=== PATIENT | female | born 1975 | race African-American/Black ===

== ENCOUNTER 2020-02-11 18:58 | Emergency (ER) | payer OTHER ==
[~2020-02-11] VITALS: Ht 170.2 cm; Wt 83.0 kg
[2020-02-11] MEDS ORDERED: ACETAMINOPHEN ES 500 MG TABLET ONE (19:18)
--- NOTE | 2020-02-11 19:22 | NUR ---
PATIENT CAME TO ER C/O RIGHT ANKLE PAIN. PATIENT STATES THAT SHE WAS MAKING HER BED WHEN SHE TWISTED HER ANKLE, UNSURE IF EVERSION OR INVERSION. ANKLE IS SWOLLEN. PATIENT STATES THAT SHE WAS ABLE TO BEAR SOME WEIGHT ON HER RIGHT FOOT. AAOX4. NO SOB. BREATHING EVENLY AND UNLABORED ON ROOM AIR.
[2020-02-11] MEDS ORDERED: ACETAMINOPHEN 325 MG TABLET PO ONE (19:30)
[2020-02-11 20:04] VITALS: BP 124/7
--- NOTE | 2020-02-11 20:04 | NUR ---
Patient discharged to home in stable condition. Written and verbal after care instructions given. Patient verbalizes understanding of instruction. Pt given crutches, taught how to ambulate using crutches. Pt ambulated through E.D. using crutches. VSS.
== END 2020-02-11 20:05 | disposition home or self-care (01) ==
LOC: ER 19:03
DX: S93.491A Sprain of other ligament of right ankle, initial encounter (principal); X50.1XXA Overexertion from prolonged static or awkward postures, initial encounter; Y93.01 Activity, walking, marching and hiking; Y92.89 Other specified places as the place of occurrence of the external cause; Y99.8 Other external cause status
CPT/HCPCS: 73610-TC

== ENCOUNTER 2022-11-17 09:23 | Emergency (ER) | payer OTHER ==
[~2022-11-17] VITALS: Ht 167.6 cm; Wt 88.5 kg
[2022-11-17 09:31] VITALS: BP 108/65
--- NOTE | 2022-11-17 09:33 | NUR ---
PT WALKED INTO ER C/O ITCHY RASH ON CHEST AND BACK SINCE YESTERDAY. PT DENIES SOB AND OR CHEST PAIN. VSS. BREATHING EVEN AND UNLABORED. AMBULATED TO BED WITH STEADY GAIT, AAOX4. AWAITING MD ORDERS.
--- NOTE | 2022-11-17 09:34 | NUR ---
PA AT BEDSIDE FOR EVAL.
[2022-11-17] MEDS ORDERED: CETI-90 PO (09:48)
--- NOTE | 2022-11-17 10:13 | NUR ---
Patient discharged to home in stable condition. Written and verbal after care instructions given. Patient verbalizes understanding of instruction.
[2022-11-18] MEDS ORDERED: HYDR453.3 TP (14:01)
[2022-11-18] MEDS ORDERED: MUPI22OI2 TP (14:01)
[2022-11-18] MEDS ORDERED: ALBU18HF2 INH (14:11)
== END 2022-11-17 10:14 | disposition home or self-care (01) ==
LOC: ER 09:23
DX: J06.9 Acute upper respiratory infection, unspecified (principal); L25.9 Unspecified contact dermatitis, unspecified cause; Z79.899 Other long term (current) drug therapy

== ENCOUNTER 2022-11-18 11:53 | Emergency (ER) | payer OTHER ==
[~2022-11-18] VITALS: Ht 167.6 cm; Wt 88.5 kg
[~2022-11-18 11:53] MED LIST: CETI-90 PO
--- NOTE | 2022-11-18 12:10 | NUR ---
BIBS C/O SOB SINCE LAST NIGHT, WORSENING RASH TO CHEST AREA. AMBULATORY, PLACED IN BED, BRERATHING UNLABORED SATURATING AT 97%RA
--- NOTE | 2022-11-18 12:35 | NUR ---
AT BEDSIDE FOR EVAL.
[2022-11-18] MEDS: ALBUTEROL FS 2.5 MG/3 ML VIAL.NEB NEB ONE (12:57)
[2022-11-18] MEDS ORDERED: ALBUTEROL FS 2.5 MG/3 ML VIAL.NEB ONE (13:04)
--- NOTE | 2022-11-18 13:14 | NUR ---
SWAB FOR COVID19 SENT TO LAB
--- NOTE | 2022-11-18 13:16 | NUR ---
X-RAY TECH AT BEDSIDE
[2022-11-18] MEDS ORDERED: HYDR453.3 TP (14:01)
[2022-11-18] MEDS ORDERED: MUPI22OI2 TP (14:01)
[2022-11-18] MEDS ORDERED: ALBU18HF2 INH (14:11)
--- NOTE | 2022-11-18 14:20 | NUR ---
Patient discharged to home in stable condition. Written and verbal after care instructions given. Patient verbalizes understanding of instruction.
[2022-11-18 14:25] VITALS: BP 120/70
== END 2022-11-18 14:20 | disposition home or self-care (01) ==
LOC: ER 11:59
DX: J06.9 Acute upper respiratory infection, unspecified (principal); R05.9 Cough, unspecified; R09.81 Nasal congestion; L25.9 Unspecified contact dermatitis, unspecified cause; L73.9 Follicular disorder, unspecified; J45.909 Unspecified asthma, uncomplicated; Z20.822 Contact with and (suspected) exposure to COVID-19; Z79.899 Other long term (current) drug therapy
CPT/HCPCS: 99285; 71045; 87426; 94644; C9803

== ENCOUNTER 2023-09-23 15:49 | Emergency (ER) | payer OTHER ==
[~2023-09-23] VITALS: Ht 167.6 cm; Wt 93.0 kg
[~2023-09-23 15:49] MED LIST changes: +ALBU18HF2 INH; +HYDR453.3 TP; +MUPI22OI2 TP
[2023-09-23 16:25] LABS: BASOPHILS % (AUTO) 0.5 % (0.0-2.0); EOSINOPHILS # (AUTO) 0.5 K/uL (0.0-0.7); HEMATOCRIT 35 % (33-45); HEMOGLOBIN 11.8 g/dL (11.5-14.8); LYMPHOCYTES % (AUTO) 30.3 % (20.0-44.0); MEAN CORPUSCULAR HEMOGLOBIN 33 PG (26.0-33.0); MEAN CORPUSCULAR HGB CONC 34 g/dl (31.0-36.0); MEAN CORPUSCULAR VOLUME 97 fL (82-100); MONOCYTES # (AUTO) 0.9 K/uL (0.1-1.30); MONOCYTES % (AUTO) 8.6 % (2.0-12.0); NEUTROPHILS # (AUTO) 5.5 K/uL (1.8-8.9); NEUTROPHILS % (AUTO) 55.6 % (43.0-81.0); PLATELET COUNT (AUTO) 276 K/uL (150-450); RED BLOOD CELL COUNT(AUTO) 3.56 MIL/uL (4.0-5.2); WHITE BLOOD COUNT (AUTO) 9.9 K/uL (4.3-11.0)
[2023-09-23] MEDS ORDERED: MORPHINE SULFATE INJ 2 MG/ML DISP.SYRIN IV ONE (16:30)
[2023-09-23] MEDS ORDERED: IV NS 0.9% 1,000 ML BAG IV ONE (16:30)
[2023-09-23] MEDS ORDERED: ONDANSETRON HCL/PF 4 MG/2 ML VIAL IVP ONE (16:30)
[2023-09-23] MEDS ORDERED: ONDANSETRON HCL/PF 4 MG/2 ML VIAL ONE (16:38)
[2023-09-23] MEDS ORDERED: KETOROLAC TROMETHAMINE INJ 30 MG/ML VIAL ONE (16:39)
[2023-09-23] MEDS ORDERED: MORPHINE SULFATE INJ 4 MG/ML DISP.SYRIN ONE (16:39)
[2023-09-23 16:50] LABS: APPEARANCE,URINE CLEAR (CLEAR); BILIRUBIN,URINE NEGATIVE (NEGATIVE); BLOOD, URINE NEGATIVE Ery/uL (NEGATIVE); COLOR,URINE YELLOW (YELLOW); KETONES,URINE NEGATIVE (NEGATIVE); LEUKOCYTE ESTERASE ,URINE NEGATIVE (NEGATIVE); NITRITE, URINE NEGATIVE (NEGATIVE); PROTEIN,URINE NEGATIVE (NEGATIVE); UGLUCOSE NEGATIVE (NEGATIVE); UROBILINOGEN,URINE 0.2 EU/dL (0.2)
[2023-09-23 16:52] LABS: PREGNANCY TEST URINE QUAL NEGATIVE (NEGATIVE)
[2023-09-23] MEDS ORDERED: KETOROLAC TROMETHAMINE INJ 30 MG/ML VIAL IV ONE (17:00)
[2023-09-23 17:02] LABS: ALBUMIN 3.7 g/dL (3.4-5.0); BILIRUBIN,DIRECT 0.2 mg/dL (0.0-0.2); BILIRUBIN,TOTAL 0.6 mg/dL (0.2-1.0); CALCIUM, SERUM 9.5 mg/dL (8.5-10.1); CREATININE 0.9 mg/dL (0.6-1.3); POTASSIUM 3.4 mmol/L (3.5-5.1); TOTAL PROTEIN, SERUM 7.2 g/dL (6.4-8.2)
[2023-09-23] MEDS ORDERED: CETI-90 PO (18:58)
[2023-09-23] MEDS ORDERED: NAPR-1164 PO (18:58)
[2023-09-23 19:50] VITALS: BP 112/70; TEMP 98.4; O2SAT 97
== END 2023-09-23 19:52 | disposition home or self-care (01) ==
LOC: ER 15:57
DX: D25.2 Subserosal leiomyoma of uterus (principal); L30.9 Dermatitis, unspecified; R10.2 Pelvic and perineal pain; R11.2 Nausea with vomiting, unspecified; Z60.2 Problems related to living alone
CPT/HCPCS: 99285; 74176; 96374; 76856; 96375; 96361; 85025; 80048; 83690; 80076; 84703; 81003; 36415; 84702; J2270; J1885; J2405; J7030

== ENCOUNTER 2024-01-01 12:23 | Emergency (ER) | payer OTHER ==
[~2024-01-01] VITALS: Ht 167.6 cm; Wt 87.5 kg
[~2024-01-01 12:23] MED LIST changes: +NAPR-1164 PO
[2024-01-01 12:43] VITALS: BP 116/75; TEMP 98.6
[2024-01-01] MEDS ORDERED: HYDR28.32 TP (13:55)
[2024-01-01 14:01] VITALS: O2SAT 99
== END 2024-01-01 14:03 | disposition home or self-care (01) ==
LOC: ER 12:30
DX: M79.672 Pain in left foot (principal); Z60.2 Problems related to living alone; Z79.899 Other long term (current) drug therapy
CPT/HCPCS: 73630-TC

== ENCOUNTER 2025-05-24 15:45 | Emergency (ER) | payer MEDICARE, OTHER ==
[~2025-05-24] VITALS: Ht 167.6 cm; Wt 92.5 kg
[~2025-05-24 15:45] MED LIST changes: +HYDR28.32 TP
[2025-05-24 16:05] VITALS: BP 136/85; TEMP 98.3
[2025-05-24] MEDS ORDERED: MUPI1OIN5 TP (16:16)
[2025-05-24] MEDS ORDERED: CEPH-570 PO (16:16)
[2025-05-24] MEDS ORDERED: IBUP-1953 PO (16:16)
[2025-05-24] MEDS ORDERED: TDAP [DIPH/PERTUSSIS/TET] 0.5 ML VIAL IM ONE (16:22)
[2025-05-24] MEDS: BACI/NEOM/POLY B OINT PKT 1 UDPKT PACKET TP ONE (16:33)
[2025-05-24] MEDS: TDAP [DIPH/PERTUSSIS/TET] 0.5 ML VIAL IM ONE (16:50)
[2025-05-24 16:55] VITALS: O2SAT 98
== END 2025-05-24 16:56 | disposition home or self-care (01) ==
LOC: ER 15:55
DX: S81.011A Laceration without foreign body, right knee, initial encounter (principal); L03.115 Cellulitis of right lower limb; Z60.2 Problems related to living alone; W25.XXXA Contact with sharp glass, initial encounter; Y93.89 Activity, other specified; Y92.89 Other specified places as the place of occurrence of the external cause; Y99.8 Other external cause status
CPT/HCPCS: 90715

== ENCOUNTER 2025-05-31 11:25 | Emergency (ER) | payer MEDICARE, OTHER ==
[~2025-05-31] VITALS: Ht 167.6 cm; Wt 93.9 kg
[~2025-05-31 11:25] MED LIST changes: +CEPH-570 PO; +IBUP-1953 PO; +MUPI1OIN5 TP
[2025-05-31 11:46] VITALS: TEMP 98.3
[2025-05-31] MEDS ORDERED: HYDROCODONE/APAP 5/325MG TABLET ONE (13:19)
[2025-05-31] MEDS ORDERED: MUPIROCIN OINT 2% 22 GM TUBE ONE (13:19)
[2025-05-31] MEDS: HYDROCODONE/APAP 5/325MG TABLET PO ONE (13:21)
[2025-05-31] MEDS: MUPIROCIN OINT 2% 22 GM TUBE TP ONE (13:22)
[2025-05-31] MEDS ORDERED: CLIN300C12 PO (13:47)
[2025-05-31] MEDS ORDERED: HYDR-4303 PO (13:47)
[2025-05-31 13:56] VITALS: BP 130/77; O2SAT 98
== END 2025-05-31 13:56 | disposition home or self-care (01) ==
LOC: ER 11:38
DX: L03.115 Cellulitis of right lower limb (principal); Z60.2 Problems related to living alone